=== PATIENT | male | born 2000 | race African-American/Black ===

== ENCOUNTER 2018-06-07 09:25 | Emergency (ER) | payer SELFPAY ==
[~2018-06-07] VITALS: Ht 180.3 cm; Wt 70.0 kg
[2018-06-07] MEDS ORDERED: TETANUS AND DIPHTHERIA TOX/PF 0.5ML SYR (ADULT) IM ONE (11:45)
[2018-06-07] MEDS ORDERED: LIDOCAINE HCL 1% 20ML VIAL (Pyxis) INJ INFIL ONE (11:45)
[2018-06-07] MEDS ORDERED: TETANUS, DIPHTHERIA, PERTUSSIS VAC/PF 0.5ML (>7YR OLD) IM ONE (13:00)
[2018-06-07 13:29] VITALS: BP 139/85
== END 2018-06-07 13:32 | disposition home or self-care (01) ==
LOC: ER 09:25
DX: S01.511A Laceration without foreign body of lip, initial encounter (principal); X95.9XXA Assault by unspecified firearm discharge, initial encounter; Y93.89 Activity, other specified; Y92.410 Unspecified street and highway as the place of occurrence of the external cause; Z23 Encounter for immunization
CPT/HCPCS: 12011; 90471; 90715; 99283; J3490; 90714